=== PATIENT | female | born 1930 | race Caucasian/White ===

== ENCOUNTER → 2016-08-02 | Outpatient (CLI) | payer MEDICARE, BC ==
[~2016-08-02] MED LIST: ASPIRIN LO-DOSE81 MG PO; CALTRATE 600 +1 EAC1 PO; EYE STREAM OPHTH; JUVENON PO; LEXAPRO10 MG PO; LISINOPRIL10 MG PO; MELATONIN10 M2 PO; MOBIC7.5 MG PO; PRILOSEC10 MG PO; TYLENOL PM EX-1 EACH PO; ZOCOR20 M1 PO
== END | disposition disaster alternative care site (69) ==
LOC: GRAD 11:30
DX: I71.4 Abdominal aortic aneurysm, without rupture (principal); K76.0 Fatty (change of) liver, not elsewhere classified